=== PATIENT | male | born 1990 | race Caucasian/White ===

== ENCOUNTER 2017-06-19 15:16 | Emergency (ER) | payer SELFPAY ==
[~2017-06-19 15:16] MED LIST: GENT0.3S2 RIGHT EYE; IBUP800T23 PO
[2017-06-19 15:19] VITALS: BP 130/71; PULSE 83; RESP 16; TEMP 98.4; O2SAT 98
[2017-06-19] MEDS ORDERED: PERC5TAB12 PO (15:33)
[2017-06-19] MEDS ORDERED: AMOXSUS PO (16:10)
[2017-06-19] MEDS ORDERED: HYDR1SOL3 PO (16:10)
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
== END 2017-06-19 20:32 | disposition home or self-care (01) ==
LOC: NEPC 15:16
DX: S02.600 Fracture of unspecified part of body of mandible, unspecified side (principal); Y04.8XXD Assault by other bodily force, subsequent encounter
CPT/HCPCS: 99284